=== PATIENT | male | born 1950 | race Caucasian/White ===

== ENCOUNTER 2019-07-14 05:17 | Observation (INO) ==
[2019-07-14] MEDS ORDERED: Aspirin 81 MG TAB.CHEW PO ONE (05:33)
[2019-07-14 05:41] LABS: Basophils # 0.1 K/mcL (0.0-0.2); Basophils % 0.9 %; Eosinophils # 0.7 K/mcL (0.0-0.6); Eosinophils % 7.4 %; Hematocrit 47.4 % (37.5-50.1); Hemoglobin 15.3 g/dL (12.9-16.9); Immature Granulocytes % 0.2 % (0-4); Mean Corpuscular HGB Conc 32.3 g/dL (31.6-35.5); Mean Corpuscular Hemoglobin 29.8 pg (28.0-33.3); Mean Corpuscular Volume 92.2 fL (83.0-100.0); Mean Platelet Volume 9.4 fL (9.4-12.4); Monocytes # 0.9 K/mcL (0.0-1.3); Monocytes % 10.2 %; Neutrophils # 5.4 K/mcL (1.6-8.9); Platelet Count 267 K/mcL (140-400); Red Blood Count 5.14 M/mcL (4.19-5.50); Red Cell Distribution Width 13.1 % (11.5-14.5); Segmented Neutrophils % 59.3 %; White Blood Count 9.1 K/mcL (4.3-11.1)
[2019-07-14 06:02] LABS: BUN/Creatinine Ratio 12 (6-26); Blood Urea Nitrogen 13 mg/dL (8-23); Calcium 10.6 mg/dL (8.6-10.3); Carbon Dioxide 27 mEq/L (23-29); Chloride 104 mEq/L (98-107); Glucose 109 mg/dL (70-105); Osmolality,Calculated 287 (280-300); Potassium 4.1 mEq/L (3.5-5.1); Sodium 138 mEq/L (136-145); Troponin I < 0.03 ng/mL (< 0.04); eGFR For African Americans > 60 (> 60); eGFR For Non-African Americans > 60 (> 60)
[2019-07-14] MEDS ORDERED: Naloxone 0.4 MG/ML INJ IVP PRN (08:01)
[2019-07-14] MEDS ORDERED: Ondansetron 4 MG/2 ML VIAL IVP PRN (08:01)
[2019-07-14] MEDS ORDERED: Regadenoson 0.4 MG/5 ML SYRINGE IVP ONE (08:32)
[2019-07-14] MEDS ORDERED: Perflutren Lipid Microsphere 1.3 ML in 0.9 % Sodium Chloride 8.7 ML IVP ONE (09:36)
[2019-07-14 10:06] LABS: Estimated Average Glucose 120 mg/dl
[2019-07-14 10:07] LABS: Cholesterol 178 mg/dL (< 200); HDL Cholesterol 60 mg/dL (40-59); LDL Cholesterol,Calculated 106 mg/dL (0-99); Triglycerides 59 mg/dL (< 150)
[2019-07-14] MEDS ORDERED: Nitroglycerin 0.4 MG TAB.SUBL SL PRN (15:10)
[2019-07-14] MEDS ORDERED: lisinopriL 5 MG TABLET PO SCH (15:15)
[2019-07-14] MEDS ORDERED: Isosorbide MONOnitrate (24 HR) 30 MG TAB.ER.24H PO SCH (15:15)
[2019-07-14 15:23] VITALS: BP 169/103
[2019-07-14] MEDS ORDERED: carvediloL 6.25 MG TABLET PO SCH (17:00)
[2019-07-14] MEDS ORDERED: *HR* Heparin 5,000 UNIT/ML VIAL SQ SCH (18:00)
[2019-07-15] MEDS ORDERED: Aspirin Enteric Coated 81 MG Tablet PO SCH (09:00)
== END 2019-07-14 16:23 | disposition home or self-care (01) ==
LOC: EMEROOARM 05:17 → 3BNU 05:17
PROVIDERS: ADMIT Internal Medicine; ATTEND Internal Medicine